=== PATIENT | female | born 1940 | race Caucasian/White ===

== ENCOUNTER → 2016-06-07 | Outpatient (CLI) | payer MEDICARE, OTHER ==
--- NOTE | 2016-06-07 10:29 | CARDIOVASCULAR REPORT ---
"Cerebrovascular Exam Indications: CVA 436. 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 IMPRESSIONS 1. The left internal carotid artery reveals no evidence of plaque or stenosis. 2. The bilateral vertebral arteries are patent with normal antegrade flow. 3. Study suggests less than 20% stenosis involving the right internal carotid artery. History: Stroke. Risk factors: Hypertension. Hyperlipidemia. Carotid duplex study. Complete study and Doppler flow study including spectral analysis, color and dozier scale imaging. Location: Vascular laboratory. Patient status: Outpatient. Tables: Arterial flow: + +--------+--------+ |Location |V sys |V ed | + +--------+--------+ |Right CCA - proximal|105cm/s |25.9cm/s| + +--------+--------+ |Right CCA - distal |75.4cm/s|20.4cm/s| + +--------+--------+ |Right ECA |63.8cm/s|--------| + +--------+--------+ |Right ICA - proximal|57.4cm/s|19.6cm/s| + +--------+--------+ |Right ICA - mid |59.9cm/s|17.2cm/s| + +--------+--------+ |Right ICA - distal |48.6cm/s|16.2cm/s| + +--------+--------+ |Right vertebral |70.7cm/s|--------| + +--------+--------+ |Left CCA - proximal |101cm/s |22.8cm/s| + +--------+--------+ |Left CCA - distal |75cm/s |18.7cm/s| + +--------+--------+ |Left ECA |87.7cm/s|--------| + +--------+--------+ |Left ICA - proximal |58.5cm/s|20.4cm/s| + +--------+--------+ |Left ICA - mid |81.6cm/s|26.5cm/s| + +--------+--------+ |Left ICA - distal |72.8cm/s|25.4cm/s| + +--------+--------+ |Left vertebral |64.5cm/s|--------| + +--------+--------+ Velocity ratios: + + + + + + | |Right, V sys|Right, V ed|Left, V sys|Left, V ed| + + + + + + |Max ICA/dist CCA|0.79 |0.96 |1.09 |1.42 | + + + + + + (Report amended ) Electronically signed by: Oscar Knott [id number]"
--- NOTE | 2016-06-07 15:03 | RADIOLOGY REPORT PS360 ---
CT CALCIUM SCORING W/3D CLINICAL INDICATION: MURMUR, DYSPNEA, GERD, HLD, HTN ORDERING PHYSICIAN: ZION GARRISON MD PATIENT AGE: 75 years COMPARISON: None FINDINGS: Coronary artery calcium score is 2 indicating minimal plaque burden and low cardiovascular disease risk. Incidental note is made of a 2.2 x 2 cm noncalcified lobulated pulmonary nodule in the central aspect of the right upper lobe. This may actually represent a varix. CT scan of the chest without and with contrast is recommended for further evaluation. IMPRESSION: 1. Coronary artery calcium score of 2 with low cardiovascular disease risk. 2. 2 cm noncalcified right upper lobe nodule possibly related to a pulmonary varix. CT of the chest without and with contrast suggested with CTA protocol on the post enhanced images
--- NOTE | 2016-06-07 21:40 | RADIOLOGY REPORT PS360 ---
PROCEDURE: 2-D M-mode and color Doppler study INDICATIONS FOR THE TEST: Chest pain COPD Heart Murmur+ Tobacco Smoking Palpitations+ Fatigue+ Syncope Edema+ Hypertension+Diabetes Mellitus Rheumatic Fever SOB DOMINGUEZ+Obesity Hyperlipidemia+ Family History HD Additional History PATIENT INFORMATION HEIGHT: 63 WEIGHT: 142 GENDER: Female B/P: 164/78 2-D/M-MODE INTERPRETATION: 2-D MEASUREMENTS OBSERVED VALUES IN CMS Right Ventricular Dimension (RVDd) 2.0 Interventricular Septum (Thickness)(IVsd) 1.3 Left Ventricular Internal Dimensions(LVIDd) 2.2 Left Ventricular Posterior Wall (Thickness)(LVPWd) 1.2 Aortic Root 2.0 Aortic Cusp Separation 1.9 Left Atrial Dimensions (LAD) 3.6 2D 1. The left atrium is mildly enlarged, left ventricle is normal size, there is mild concentric left ventricular hypertrophy present, septum has sigmoid configuration, there is hyperdynamic left ventricular systolic function visually estimated ejection fraction over 65% with no obvious regional wall motion abnormality, there is complete cavity obliteration during systole. 2. The right atrium and right ventricle are normal size and contractility. 3. The aortic valve is minimally thickened and fibrosed consistent with mild aortic sclerosis. 4. The mitral valve has mitral calcification, there is systolic anterior motion of the mitral valve leaflets towards left ventricular outflow tract. There is no mitral stenosis. 5. The tricuspid valve restructure normal. 6. The pulmonic valve is not well visualized. 7. No significant pericardial effusion noted. DOPPLER INTERROGATION: 1. 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 There is no aortic stenosis or aortic insufficiency. 2. The mitral inflow velocity within normal range, there is no mitral stenosis, there is mild mitral regurgitation, grade 1 diastolic dysfunction seen. 3. There is mild tricuspid regurgitation seen, tricuspid regurgitant jet velocity insufficient for calculation of the right ventricular systolic pressure. 4. There is mild pulmonic insufficiency seen. CONCLUSION: 1. Mildly enlarged left atrium, mild concentric left ventricular hypertrophy, visually estimated ejection fraction over 65% with no obvious regional wall motion abnormality. There is systolic anterior motion of the mitral valve leaflets, and increased velocities in the left ventricular outflow tract is suggestive of the dynamic left ventricular outflow track obstruction, however the velocities are not accurately recorded to calculate the intracavitary gradient. 2. Grade 1 diastolic dysfunction seen. 3. Mild mitral and tricuspid regurgitation. 4. No significant pericardial effusion noted.
--- NOTE | 2016-06-10 14:30 | RADIOLOGY REPORT PS360 ---
History and Indications: Hypertension, hyperlipidemia family history, shortness of breath fatigued abnormal EKG. Procedure: Patient received 0.4 mg of Lexiscan, resting heart rate was 76 bpm resting blood pressure 156/71 with Lexiscan maximum heart rate achieved was 93 bpm which is less than 85% of the maximum predicted heart rate and a blood pressure was of 145/58, with Lexiscan patient complained of mild chest pressure and stomach discomfort. Electrocardiogram: Resting electrocardiogram showed sinus rhythm nonspecific ST-T changes, with Lexiscan there is less than 1.5 mm the segment depression noted from the baseline EKG. The EKG portion of the Lexiscan is nondiagnostic. Cardiac stress and resting SPECT images: Cardiac stress and rest SPECT images were obtained using technetium 99 Myoview 10.7 MCI at rest 32.3 mCi at stress, gated SPECT for analysis of segmental wall motion and calculation of the ejection fraction was also done. Cardiac stress and resting SPECT images show uniform myocardial activity without any segmental perfusion abnormality, computer derived ejection fraction is over 65% with no obvious regional wall motion abnormality, right ventricle is normal size and contractility. Conclusion: 1. The EKG portion of the Lexiscan is nondiagnostic. 2. No obvious scintigraphic evidence of reversible ischemia seen, computer derived ejection fraction is over 65% no obvious regional wall motion abnormality, right ventricle is normal size and contractility. 3. Normal Lexiscan Myoview study.
== END ==
LOC: RAD 06:28
DX: R01.1 Cardiac murmur, unspecified (principal); R06.00 Dyspnea, unspecified; I65.23 Occlusion and stenosis of bilateral carotid arteries; E78.5 Hyperlipidemia, unspecified; I10 Essential (primary) hypertension; K21.9 Gastro-esophageal reflux disease without esophagitis
CPT/HCPCS: A9502; J2785